=== PATIENT | female | born 1995 | race African-American/Black ===

== ENCOUNTER 2021-09-30 05:06 | Emergency (ER) | payer MEDICAID ==
[~2021-09-30] VITALS: Ht 160 cm; Wt 46.7 kg
[2021-09-30 05:36] VITALS: BP 150/107
[2021-09-30] MEDS ORDERED: FAMO-135 MT (06:09)
[2021-09-30] MEDS ORDERED: MAG355OR21 MT (06:09)
[2021-09-30] MEDS ORDERED: FAMOTIDINE 20MG TABLET PO ONE (06:15)
[2021-09-30] MEDS ORDERED: MAGNESIUM/ALUMINUM HYDROXIDE/SIMETHICONE 30ML UDC PO ONE (06:15)
[2021-09-30] MEDS ORDERED: VISCOUS LIDOCAINE 2% 15 ML UDC MM PRN (06:15)
== END 2021-09-30 06:39 | disposition home or self-care (01) ==
LOC: ER 05:06 → EDBD 05:06 → ER 06:39
DX: R12 Heartburn (principal)
CPT/HCPCS: 81025; 99283; Z7610